=== PATIENT | female | born 1995 | race Caucasian/White ===

== ENCOUNTER 2018-05-27 11:44 | Emergency (ER) | payer OTHER ==
--- NOTE | 2018-05-27 12:09 | ER Document Report ---
ED Medical Screen (RME) - General Chief Complaint: Numbness of Face Stated Complaint: FACIAL PAIN, DIZZY, ARM NUMBNESS Time Seen by Provider: 05/27/18 12:07 Mode of Arrival: Ambulatory Information source: Patient TRAVEL OUTSIDE OF THE [place] IN LAST 30 DAYS: No - HPI Patient complains to provider of: numbness in face, L arm Onset: Yesterday - pt with prior TIA with c/o facial numbness and L arm numbness starting yesterday and continuing into today. - Related Data Allergies/Adverse Reactions: No Known Allergies Allergy (Unverified 05/27/18 11:45) Physical Exam - Vital signs Vitals: Temp Pulse Resp BP Pulse Ox 98.5 F 78 18 114/52 L 98 05/27/18 11:50 05/27/18 11:50 05/27/18 11:50 05/27/18 11:50 05/27/18 11:50 Course - Vital Signs Vital signs: Temp Pulse Resp BP Pulse Ox 98.5 F 78 18 114/52 L 98 05/27/18 11:50 05/27/18 11:50 05/27/18 11:50 05/27/18 11:50 05/27/18 11:50
[2018-05-27 12:35] LABS: ABSOLUTE BASOPHILS # (AUTO) 0.1 10^3/uL (0.0-0.2); ABSOLUTE EOSINOPHILS # (AUTO) 0.1 10^3/uL (0.0-0.6); ABSOLUTE LYMPHOCYTES (AUTO) 2.7 10^3/uL (0.5-4.7); ABSOLUTE MONOCYTES (AUTO) 0.5 10^3/uL (0.1-1.4); ABSOLUTE NEUT (AUTO) 6.6 10^3/uL (1.7-8.2); APPEARANCE,URINE CLEAR; BASOPHILS % (AUTO) 0.6 % (0-2); BILIRUBIN,URINE NEGATIVE (NEGATIVE); COLOR,URINE STRAW; GLUCOSE, URINE NEGATIVE (NEGATIVE); HEMATOCRIT 41.2 % (36.0-47.0); HEMOGLOBIN 13.8 g/dL (12.0-15.5); KETONES,URINE NEGATIVE (NEGATIVE); LEUKOCYTE ESTERASE,URINE NEGATIVE (NEGATIVE); LYMPHOCYTES % (AUTO) 27.3 % (13-45); MEAN CORPUSCULAR HGB CONC 33.4 g/dL (32.0-36.0); MEAN CORPUSCULAR VOLUME 81 fl (80-97); MONOCYTES % (AUTO) 5.2 % (3-13); NITRITE,URINE NEGATIVE (NEGATIVE); PLATELET COUNT 248 10^3/uL (150-450); PROTEIN,URINE NEGATIVE (NEGATIVE); RED CELL DISTRIBUTION WIDTH 13.4 % (11.5-14.0); SEGMENTED NEUTROPHILS % (AUTO) 65.9 % (42-78); TOTAL CELLS COUNTED % (AUTO) 100 %; URINE SPECIFIC GRAVITY 1.003; UROBILINOGEN,URINE NEGATIVE mg/dL (<2.0)
--- NOTE | 2018-05-27 12:36 | RADIOLOGY REPORT (SQ) ---
EXAM DESCRIPTION: CT HEAD WITHOUT COMPLETED DATE/TIME: 05/27/2018 12:25 pm REASON FOR STUDY: numbness COMPARISON: None. TECHNIQUE: Axial images acquired through the brain without intravenous contrast. Images reviewed wi th bone, brain and subdural windows. Additional sagittal and coronal reconstructions were generated. Images stored on PACS. All CT scanners at this facility use dose modulation, iterative reconstruction, and/or weight based d osing when appropriate to reduce radiation dose to as low as reasonably achievable (ALARA). [facility]: Dose Right [facility]: CareDose [facility]: Dose Right [facility]: Teradose 4D [facility]: [place] RADIATION DOSE: CT Rad equipment meets quality standard of care and radiation dose reduction techniq ues were employed. CTDIvol: 53.2 mGy. DLP: 1017 mGy-cm. mGy. LIMITATIONS: None. FINDINGS: VENTRICLES: Normal size and contour. CEREBRUM: No masses. No hemorrhage. No midline shift. No evidence for acute infarction. Normal gra y/white matter differentiation. No areas of low density in the white matter. CEREBELLUM: No masses. No hemorrhage. No alteration of density. No evidence for acute infarction. EXTRAAXIAL SPACES: No fluid collections. No masses. ORBITS AND GLOBE: No intra- or extraconal masses. Normal contour of globe without masses. CALVARIUM: No fracture. PARANASAL SINUSES: No fluid or mucosal thickening. SOFT TISSUES: No mass or hematoma. OTHER: No other significant finding. IMPRESSION: NORMAL BRAIN CT WITHOUT CONTRAST. EVIDENCE OF ACUTE STROKE: NO. COMMENT: Quality ID # [id number]: Final reports with documentation of one or more dose reduction techniques (e.g., Automated exposure control, adjustment of the mA and/or kV according to patient size, use of iterative reconstruction technique) TECHNICAL DOCUMENTATION: JOB ID: [id number] [employer]- All Rights Reserved Reading location - IP/workstation name: [email or web address]
--- NOTE | 2018-05-27 12:51 | ER Document Report ---
ED General - General Chief Complaint: Numbness of Face Stated Complaint: FACIAL PAIN, DIZZY, ARM NUMBNESS Time Seen by Provider: 05/27/18 12:07 Mode of Arrival: Ambulatory TRAVEL OUTSIDE OF THE [place] IN LAST 30 DAYS: No - HPI Notes: Patient is a 22-year-old female with a history of migraines and reported history of a previous TIA a year ago when she was in [place] presents to the ED complaining of a dull ache behind her left eye, left head "fogginess" and tingling to the left upper extremity extending into the hand 3 days. Patient states her symptoms have been constant, but considered "mild" for her. 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 Patient states that she was stationed in [place] with the [employer] and went to an outside emergency department where she was admitted for 10 days. 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 Patient states that they gave her medicine to help break down the plaque was discharged thereafter. Patient has not been evaluated since her return and recently moved to this area. She states that her symptoms when she was in [place] was "similar, but 10x worse." She denies any prolonged immobilization, recent surgery/trauma, smoking, cancer history, previous DVT/PE. Denies any fever, neck pain, changes in vision/speech/mentation/hearing, URI, sore throat, chest pain, palpitations, syncope, cough, shortness of breath, wheeze, dyspnea, abdominal pain, nausea/vomiting/diarrhea, urinary retention, dysuria, hematuria , loss of control of bowel or bladder, saddle anesthesia, muscle paralysis/ weakness, or rash. - Related Data Allergies/Adverse Reactions: No Known Allergies Allergy (Verified 05/27/18 12:11) Past Medical History - General Information source: Patient - Social History Smoking Status: Never Smoker Frequency of alcohol use: None Drug Abuse: None Family History: Reviewed & Not Pertinent Patient has suicidal ideation: No Patient has homicidal ideation: No Renal/ Medical History: Denies: Hx Peritoneal Dialysis Past Surgical History: Reports: Hx Orthopedic Surgery - da knee Review of Systems - Review of Systems -: Yes All other systems reviewed and negative Physical Exam - Vital signs Vitals: Temp Pulse Resp BP Pulse Ox 98.5 F 78 18 114/52 L 98 05/27/18 11:50 05/27/18 11:50 05/27/18 11:50 05/27/18 11:50 05/27/18 11:50 - Notes Notes: PHYSICAL EXAMINATION: GENERAL: Well-appearing, well-nourished and in no acute distress. A&Ox4. Answers questions appropriately. HEAD: Atraumatic, normocephalic. Non-tender. EYES: Pupils equal round and reactive to light, extraocular movements intact, sclera anicteric, conjunctiva are normal. No nystagmus. vis diaz intact. ENT: EAC clear b/l. TM's intact b/l without erythema, fluid, or perforation. Nares patent and without discharge. oropharynx clear without exudates. No tonsilar hypertrophy or erythema. Moist mucous membranes. No sinus tenderness. NECK: Normal range of motion, supple without lymphadenopathy. No rigidity/ meningismus. No midline tenderness. No bruits. LUNGS: Breath sounds clear to auscultation bilaterally and equal. No wheezes rales or rhonchi. HEART: Regular rate and rhythm without murmurs, rubs, gallops. ABDOMEN: Soft, nontender, nondistended abdomen. No guarding, no rebound. Normal bowel sounds present. No CVA tenderness bilaterally. Musculoskeletal: Ext b/l: FROM to passive/active. Strength 5+/5. No deficits noted. No bony tenderness of extremities. + mild tinel left wrist, made her hand feel "warm." Extremities: No cyanosis, clubbing, or edema b/l. Peripheral pulses 2+. Capillary refill less than 2 seconds. NEUROLOGICAL: NIH 0. GCS 15. Cranial nerves grossly intact. Normal speech, normal gait. Normal sensory, motor exams. Reflexes 2+ b/l. JOSE RAUL's negative. Pronator drift negative. Heel/graves, finger/nose wnl. Rhomberg neg. PSYCH: Normal mood, normal affect. SKIN: Warm, Dry, normal turgor, no rashes or lesions noted. Course - Re-evaluation Re-evalutation: 05/27/18 14:23 Patient is an afebrile, well-hydrated, 22-year-old female who presents to the ED with left-sided headache and tingling left upper extremity, unspecified. Vitals are acceptable without any significant tachycardia, tachypnea, or hypoxia. PE is otherwise unremarkable for any focal neurological deficits. CBC , CMP, TSH, urinalysis were unremarkable for acute pathology. Urine drug screen did show positive for barbiturates, which I suspect is her migraine medication. CT scan of the head was unremarkable for any acute pathology. NIH 0, GCS 15, cranial nerves grossly intact. I did review this case with Dr. Solano who is in agreement with dispo/plan. No other labs or imaging warranted at this time based on H&P. Her symptoms have been ongoing constantly for 3 days and exam is unremarkable. Based on her current presentation and symptomatology, I have a low suspicion for any acute glaucoma, temporal arteritis, meningitis, intracranial hemorrhage, ischemic stroke, severe dehydration, or fracture at this time. Patient is aware that this condition can change from initial presentation and that she needs to monitor symptoms closely for any acute changes. I will send her home with a prescription for naproxen. Conservative measures for symptoms. Recheck with your PCM in 3-5 days. Schedule an appointment with neurology for further evaluation and management. Return to the ED with any worsening/concerning symptoms otherwise as reviewed in discharge. Patient is in agreement. - Vital Signs Vital signs: Temp Pulse Resp BP Pulse Ox 98.5 F 78 18 114/52 L 98 05/27/18 11:50 05/27/18 12:00 05/27/18 12:00 05/27/18 12:00 05/27/18 12:00 - Laboratory Result Diagrams: 05/27/18 12:11 05/27/18 12:11 Laboratory results interpreted by me: 05/27/18 12:11 Urine Blood SMALL H Discharge - Discharge Clinical Impression: Tingling of left upper extremity Headache Qualifiers: Headache type: unspecified Headache chronicity pattern: acute headache Intractability: not intractable Qualified Code(s): R51 - Headache Condition: Stable Disposition: HOME, SELF-CARE Additional Instructions: Rest, Ice/cool compress Tylenol/ibuprofen as needed Light stretches daily Strength exercises as able Moist heat and massage may help F/u with your PCP in 3-5 days for a recheck Schedule an appointment with neurology for further evaluation and management Return to the ED with any worsening symptoms and/or development of fever, headache, changes in behavior/mentation/vision/speech, chest pain, palpitations , syncope, shortness of breath, trouble breathing, abdominal pain, n/v/d, blood in stool/urine, loss of control of bowel/bladder, urinary retention, muscle weakness/paralysis, saddle anesthesia, numbness/tingling, or other worsening symptoms that are concerning to you. Prescriptions: Naproxen 500 mg PO BID PRN #30 tablet PRN Reason: Referrals: JUDITH ROJO MD [NO LOCAL MD] - Follow up in 3-5 days
[2018-05-27 12:53] LABS: URINE AMPHETAMINES SCREEN NEGATIVE; URINE BARBITURATES SCREEN UNCONFIRMED POSITIVE; URINE BENZODIAZEPINES SCREEN NEGATIVE; URINE COCAINE SCREEN NEGATIVE; URINE MARIJUANA (THC) SCREEN NEGATIVE; URINE METHADONE SCREEN NEGATIVE; URINE PHENCYCLIDINE SCREEN NEGATIVE
[2018-05-27 12:59] LABS: ALANINE AMINOTRANSFERASE 24 U/L (9-52); ALBUMIN 4.6 g/dL (3.5-5.0); ALKALINE PHOSPHATASE 50 U/L (38-126); ANION GAP 10 (5-19); ASPARTATE AMINO TRANSFERASE 25 U/L (14-36); BILIRUBIN,DIRECT 0.2 mg/dL (0.0-0.4); BILIRUBIN,TOTAL 0.6 mg/dL (0.2-1.3); BLOOD UREA NITROGEN 16 mg/dL (7-20); CALCIUM 9.7 mg/dL (8.4-10.2); CARBON DIOXIDE 28 mmol/L (22-30); CHLORIDE 105 mmol/L (98-107); GLUCOSE 90 mg/dL (75-110); POTASSIUM 4.4 mmol/L (3.6-5.0); SODIUM 143.1 mmol/L (137-145); TOTAL PROTEIN 7.6 g/dL (6.3-8.2)
[2018-05-27] MEDS ORDERED: KETOROLAC TROMETHAMINE INJ/PF 30 MG/1 ML SDV IM ONE (13:37)
[2018-05-27 14:49] VITALS: BP 107/55
== END 2018-05-27 14:49 | disposition home or self-care (01) ==
LOC: ER 11:44
DX: R20.2 Paresthesia of skin (principal); R51 Headache; Z86.69 Personal history of other diseases of the nervous system and sense organs; Z86.73 Personal history of transient ischemic attack (TIA), and cerebral infarction without residual deficits
CPT/HCPCS: 36415; 70450; 80053; 80307; 81001; 81025; 84443; 85025; 99284

== ENCOUNTER → 2018-06-17 | Outpatient (CLI) | payer OTHER ==
--- NOTE | 2018-06-17 14:03 | RADIOLOGY REPORT (SQ) ---
EXAM DESCRIPTION: MRI HEAD WITHOUT COMPLETED DATE/TIME: 06/17/2018 1:20 pm REASON FOR STUDY: HEADACHE/DIZZINESS AND GIDDINESS/PARASTHEIA OF SKIN R51 HEADACHE R41.2 RETROGRAD E AMNESIA R20.2 PARESTHESIA OF SKIN COMPARISON: None. TECHNIQUE: Multiplanar imaging includes non-contrasted T1, T2, FLAIR, and diffusion with ADC map seq uences. Images stored on PACS. LIMITATIONS: None. FINDINGS: ANATOMY: No anomalies. Normal vascular flow voids. Pituitary fossa normal. CSF SPACES: Normal in size and contour. No hemorrhage. CEREBRUM: Sulci and gyri normal in size and contour. Normal white matter signal on FLAIR imaging. No evidence of hemorrhage, mass, or extraaxial fluid collection. POSTERIOR FOSSA: No signal alteration. No hemorrhage. No edema, masses or mass effect. Internal noemy tory canals, cerebello-pontine angles, mastoids normal. DIFFUSION IMAGING: Negative for acute or sub-acute infarction. ORBITS: No masses. Globes normal. PARANASAL SINUSES: No fluid levels. Mucosa normal. OTHER: No other significant finding. IMPRESSION: NORMAL MRI OF THE BRAIN WITHOUT INTRAVENOUS GADOLINIUM CONTRAST. EVIDENCE OF ACUTE STROKE: NO. TECHNICAL DOCUMENTATION: JOB ID: [id number] [employer]- All Rights Reserved Reading location - IP/workstation name: [email or web address]
--- NOTE | 2018-06-17 16:11 | RADIOLOGY REPORT (SQ) ---
EXAM DESCRIPTION: CAROTID DOPPLER COMPLETED DATE/TIME: 06/17/2018 4:02 pm REASON FOR STUDY: HEADACHE DIZZINESS AND GIDDINESS R51 HEADACHE R41.2 RETROGRADE AMNESIA R20.2 PA RESTHESIA OF SKIN COMPARISON: None. TECHNIQUE: Grayscale ultrasound, Doppler velocity and spectra, and color Doppler images acquired of the extra-cranial carotid and vertebral arteries. Images stored on PACS. LIMITATIONS: None. FINDINGS: RIGHT CAROTID CCA Velocities: Within normal limits. ICA Velocities Peak systolic 0.84 m/s. End diastolic 0.25 m/s. Proximal ICA/CCA peak systolic ratio 0.7. Spectra normal. No significant plaque. LEFT CAROTID CCA Velocities: Within normal limits. ICA Velocities Peak systolic 0.99 m/s. End diastolic 0.33 m/s. Proximal ICA/CCA peak systolic ratio 0.8. Spectra normal. No significant plaque. VERTEBRAL ARTERIES: Antegrade flow. Normal waveforms. SUBCLAVIAN ARTERIES: Not imaged. OTHER: No other significant finding. IMPRESSION: NO HEMODYNAMICALLY SIGNIFICANT STENOSIS. COMMENT: Quality ID #[id number]: Velocity criteria are extrapolated from the diameter data as defined by t he Society of Radiologists in Ultrasound Consensus Conference. Radiology 2003: 229; 340-346. TECHNICAL DOCUMENTATION: JOB ID: [id number] [employer]- All Rights Reserved Reading location - IP/workstation name: [email or web address]
== END ==
LOC: RAD 12:42
PROVIDERS: ATTEND Obstetrics & Gynecology
DX: R51 Headache (principal); R41.2 Retrograde amnesia; R20.2 Paresthesia of skin
CPT/HCPCS: 70551; 93880

== ENCOUNTER → 2019-08-24 | Outpatient (CLI) | payer OTHER ==
[2019-08-24 16:20] LABS: HEMATOCRIT 39.3 % (36.0-47.0); MEAN CORPUSCULAR VOLUME 82 fl (80-97); PLATELET COUNT 225 10^3/uL (150-450); RED BLOOD COUNT 4.81 10^6/uL (3.72-5.28); RED CELL DISTRIBUTION WIDTH 12.9 % (11.5-14.0); WHITE BLOOD COUNT 11.8 10^3/uL (4.0-10.5)
[2019-08-24 16:37] LABS: ALBUMIN 4.3 g/dL (3.5-5.0); ALKALINE PHOSPHATASE 48 U/L (38-126); ANION GAP 10 (5-19); ASPARTATE AMINO TRANSFERASE 19 U/L (14-36); BILIRUBIN,DIRECT 0.1 mg/dL (0.0-0.4); BILIRUBIN,TOTAL 0.4 mg/dL (0.2-1.3); BLOOD UREA NITROGEN 18 mg/dL (7-20); CALCIUM 9.3 mg/dL (8.4-10.2); CARBON DIOXIDE 27 mmol/L (22-30); CHLORIDE 105 mmol/L (98-107); POTASSIUM 3.9 mmol/L (3.6-5.0); TOTAL PROTEIN 7.1 g/dL (6.3-8.2)
[2019-08-24 16:40] LABS: APPEARANCE,URINE CLEAR; BILIRUBIN,URINE NEGATIVE (NEGATIVE); COLOR,URINE YELLOW; GLUCOSE, URINE NEGATIVE (NEGATIVE); KETONES,URINE NEGATIVE (NEGATIVE); LEUKOCYTE ESTERASE,URINE SMALL (NEGATIVE); NITRITE,URINE NEGATIVE (NEGATIVE); PROTEIN,URINE NEGATIVE (NEGATIVE); URINE SPECIFIC GRAVITY 1.016; UROBILINOGEN,URINE NEGATIVE mg/dL (<2.0)
[2019-08-24 16:47] LABS: INTERNATIONAL RATION (INR) 1.07; PARTIAL THROMBOPLASTIN TIME 34.6 SEC (23.5-35.8)
[2019-08-24 16:48] LABS: GLUCOSE 61 mg/dL (75-110)
== END ==
LOC: LAB 15:53
PROVIDERS: ATTEND Obstetrics & Gynecology
DX: Z13.9 Encounter for screening, unspecified (principal)
CPT/HCPCS: 36415; 80053; 81001; 83036; 84703; 85027; 85610; 85730; 86304; 86900; 86901

== ENCOUNTER → 2019-10-03 | Outpatient (CLI) | payer OTHER ==
[2019-10-04 09:59] LABS: CANCER ANTIGEN (CA) 125 15.8 U/mL (0.0-38.1)
[2019-10-06 09:56] LABS: MULLERIAN HORMONE (AMH) AB 6.23 ng/mL (.)
== END ==
LOC: LAB 13:07
PROVIDERS: ATTEND Obstetrics & Gynecology
DX: Z00.00 Encounter for general adult medical examination without abnormal findings (principal)
CPT/HCPCS: 36415; 82626; 82670; 83001; 83516; 84144; 84403; 84443; 86304

== ENCOUNTER 2020-01-17 11:58 | Emergency (ER) | payer OTHER ==
[2020-01-17] MEDS ORDERED: ALBUTEROL SULFATE HFA (90 MCG/PUFF) 8 GM MDI IH ONE (12:49)
[2020-01-17 12:50] LABS: APPEARANCE,URINE CLEAR; BILIRUBIN,URINE NEGATIVE (NEGATIVE); COLOR,URINE YELLOW; GLUCOSE, URINE NEGATIVE (NEGATIVE); KETONES,URINE NEGATIVE (NEGATIVE); LEUKOCYTE ESTERASE,URINE NEGATIVE (NEGATIVE); NITRITE,URINE NEGATIVE (NEGATIVE); PROTEIN,URINE NEGATIVE (NEGATIVE); URINE SPECIFIC GRAVITY 1.006; UROBILINOGEN,URINE NEGATIVE mg/dL (<2.0)
--- NOTE | 2020-01-17 12:50 | ER Document Report ---
ED General - General Chief Complaint: Breathing Difficulty Stated Complaint: TROUBLE BREATHING Primary Care Provider: FERNIE PÉREZ MD [Primary Care Provider] - Follow up as needed Notes: Patient is a 24-year-old white female with no significant past medical history presents to the emergency department with a chief complaint of shortness of b reath and fever. The patient reports about a week ago states her returned home from deployment to [facility]. She states he was around approximately 39 or 49 known cases of COVID 19. She states he has been in isolation since his returned for quarantine however she has had close contact with him during this time. She states she lives with him and their young son. She reports last week her son was sick with flulike symptoms. Was seen outpatient diagnosed with influenza A. She states he was given no specific treatment and his symptoms resolved in approximately 2 days. She reports that he had fever, cough and sore throat. The patient reports about a week ago today she began feeling unwell. She states she started with fevers averaging 102 Fahrenheit and generalized malaise and fatigue. She states her symptoms have waxed and waned over the past week and today she started having shortness of breath and bilateral chest wall discomfort. States the pain is worse with deep inspiration. She denies a history of cough. Denies any hemoptysis or lower extremity pain or swelling. She denies any recent travel of her own. She was never tested for influenza last week when her son was sick. She was seen outpatient for swab testing prior to her visit here. She had a negative strep and flu and is pending COVID-19 test. She states that she called the chain of command to advise of her symptoms given her exposure to her , they advised they do not handle civilian care and referred her to a one 800- number. She states she called this one 800-number and was told to go to a local outpatient lab for coronavirus testing. She was sent here from the lab given her complaint of shortness of breath for further evaluation and management. TRAVEL OUTSIDE OF THE [place] IN LAST 30 DAYS: No - Related Data Allergies/Adverse Reactions: No Known Allergies Allergy (Verified 05/27/18 12:11) Past Medical History - Social History Smoking Status: Unknown if Ever Smoked Family History: Reviewed & Not Pertinent Renal/ Medical History: Denies: Hx Peritoneal Dialysis Past Surgical History: Reports: Hx Orthopedic Surgery - da knee Review of Systems - Review of Systems Constitutional: Fever, Malaise Respiratory: Hurts to breathe, Short of breath -: Yes All other systems reviewed and negative Physical Exam - Vital signs Vitals: Resp Pulse Ox 8 L 100 01/17/20 12:29 01/17/20 12:29 - General General appearance: Appears well, Alert In distress: None - HEENT Head: Normocephalic, Atraumatic Eyes: Normal Conjunctiva: Normal Extraocular movements intact: Yes Eyelashes: Normal Pupils: PERRL Ears: Normal External canal: Normal Tympanic membrane: Normal Sinus: Normal Nasal: Normal Mouth/Lips: Normal Mucous membranes: Normal Pharynx: Normal Neck: Normal - Respiratory Respiratory status: No respiratory distress Chest status: Tender - Bilateral lower chest wall in the anterior to mid axillary lines. No deformity step-off or crepitus. Breath sounds: Normal Chest palpation: Tender. No: Flail segment, Subcutaneous emphysema, Ecchymosis, Wounds - Cardiovascular Rhythm: Regular Heart sounds: Normal auscultation Murmur: No - Extremities General upper extremity: Normal inspection, Nontender, Normal color, Normal ROM, Normal temperature General lower extremity: Normal inspection, Nontender, Normal color, Normal ROM, Normal temperature, Normal weight bearing. No: Alonzo's sign - Neurological Neuro grossly intact: Yes Cognition: Normal Orientation: AAOx4 [place] Coma Scale Eye Opening: Spontaneous [place] Coma Scale Verbal: Oriented Ivan Coma Scale Motor: Obeys Commands Ivan Coma Scale Total: 15 Speech: Normal Motor strength normal: LUE, RUE, LLE, RLE Sensory: Normal - Psychological Associated symptoms: Normal affect, Normal mood - Skin Skin Temperature: Warm Skin Moisture: Dry Skin Color: Normal Course - Re-evaluation Re-evalutation: 01/17/20 13:49 Normal white cell count. X-ray negative for acute process per radiologist. Negative flu and strep. Pending COVID-19 results, the patient will be considered a patient under investigation. She will self isolate at home. We discussed these measures at length. She has had contact with her [id number], and son. She lives with her and son and they will also self quarantine together as her is already under quarantine. She will alert her [id number] to quarantine as well. Counseled her at length regarding supportive care measures and the importance of follow-up. Advised that she return here or any ER immediately with any new, persistent or worsening symptoms. She verbalized understood and agreed. - Vital Signs Vital signs: Temp Pulse Resp BP Pulse Ox 98.5 F 12 103/62 100 01/17/20 15:08 01/17/20 14:01 01/17/20 14:01 01/17/20 14:01 - Laboratory Result Diagrams: 01/17/20 12:44 01/17/20 12:44 Laboratory results interpreted by me: 01/17/20 01/17/20 12:44 12:44 Lymph % (Auto) 11.7 L Glucose 71 L Discharge - Discharge Clinical Impression: PUI for COVID-19, Shortness of breath Fever Qualifiers: Fever type: unspecified Qualified Code(s): R50.9 - Fever, unspecified Condition: Stable Disposition: HOME, SELF-CARE Instructions: Fever ([facility]) Additional Instructions: Your strep test and flu swab were negative. Your coronavirus testing is pending. Please self isolate in your home as discussed. Please warn others that you have had contact with to self isolate as well and seek medical care should they become ill. Please return here or any ER immediately with any new, persistent or worsening symptoms. Referrals: FERNIE PÉREZ MD [Primary Care Provider] - Follow up as needed
[2020-01-17 12:54] LABS: ABSOLUTE EOSINOPHILS # (AUTO) 0.1 10^3/uL (0.0-0.6); ABSOLUTE LYMPHOCYTES (AUTO) 0.8 10^3/uL (0.5-4.7); ABSOLUTE MONOCYTES (AUTO) 0.7 10^3/uL (0.1-1.4); ABSOLUTE NEUT (AUTO) 5.5 10^3/uL (1.7-8.2); BASOPHILS % (AUTO) 0.5 % (0-2); HEMATOCRIT 40.4 % (36.0-47.0); HEMOGLOBIN 14.1 g/dL (12.0-15.5); LYMPHOCYTES % (AUTO) 11.7 % (13-45); MEAN CORPUSCULAR HEMOGLOBIN 28.2 pg (27.0-33.4); MEAN CORPUSCULAR HGB CONC 34.9 g/dL (32.0-36.0); MEAN CORPUSCULAR VOLUME 81 fl (80-97); MONOCYTES % (AUTO) 9.3 % (3-13); PLATELET COUNT 193 10^3/uL (150-450); RED BLOOD COUNT 4.99 10^6/uL (3.72-5.28); RED CELL DISTRIBUTION WIDTH 13.1 % (11.5-14.0); SEGMENTED NEUTROPHILS % (AUTO) 77.5 % (42-78); TOTAL CELLS COUNTED % (AUTO) 100 %; WHITE BLOOD COUNT 7.1 10^3/uL (4.0-10.5)
[2020-01-17 13:10] LABS: ALBUMIN 4.2 g/dL (3.5-5.0); ALKALINE PHOSPHATASE 59 U/L (38-126); ANION GAP 8 (5-19); ASPARTATE AMINO TRANSFERASE 20 U/L (14-36); BILIRUBIN,TOTAL 0.9 mg/dL (0.2-1.3); BLOOD UREA NITROGEN 13 mg/dL (7-20); CALCIUM 9.1 mg/dL (8.4-10.2); CARBON DIOXIDE 28 mmol/L (22-30); CHLORIDE 102 mmol/L (98-107); GLUCOSE 71 mg/dL (75-110); POTASSIUM 4.1 mmol/L (3.6-5.0); TOTAL PROTEIN 7.1 g/dL (6.3-8.2)
--- NOTE | 2020-01-17 13:38 | RADIOLOGY REPORT (SQ) ---
EXAM DESCRIPTION: CHEST SINGLE VIEW COMPLETED DATE/TIME: 01/17/2020 1:24 pm REASON FOR STUDY: sob COMPARISON: None. EXAM PARAMETERS: NUMBER OF VIEWS: One view. TECHNIQUE: Single frontal radiographic view of the chest acquired. RADIATION DOSE: NA LIMITATIONS: None. FINDINGS: LUNGS AND PLEURA: No opacities, masses or pneumothorax. No pleural effusion. MEDIASTINUM AND HILAR STRUCTURES: No masses. Contour normal. HEART AND VASCULAR STRUCTURES: Heart normal in size. Normal vasculature. BONES: No acute findings. HARDWARE: None in the chest. OTHER: No other significant finding. IMPRESSION: NO ACUTE RADIOGRAPHIC FINDING IN THE CHEST. TECHNICAL DOCUMENTATION: JOB ID: [id number] [email or web address]- All Rights Reserved Reading location - IP/workstation name: [email or web address]
[2020-01-17 15:08] VITALS: BP 103/62
== END 2020-01-17 14:50 | disposition home or self-care (01) ==
LOC: ER 11:58
DX: Z20.828 Contact with and (suspected) exposure to other viral communicable diseases (principal); R06.02 Shortness of breath; R50.9 Fever, unspecified; R53.81 Other malaise; R53.83 Other fatigue; R07.9 Chest pain, unspecified
CPT/HCPCS: 99285; 36415; 85025; 80053; 81001; 71045; J3490

== ENCOUNTER → 2020-01-17 | Outpatient (CLI) | payer OTHER ==
[2020-01-17 12:17] LABS: A TYPE INFLUENZA AG NEGATIVE (NEGATIVE); B INFLUENZA AG NEGATIVE (NEGATIVE)
== END ==
LOC: RDC 11:07
PROVIDERS: ATTEND Registered Nurse
DX: Z20.828 Contact with and (suspected) exposure to other viral communicable diseases (principal)
CPT/HCPCS: 87070; 87635; 87804; 87880

== ENCOUNTER 2020-03-20 12:13 | Outpatient (CLI) | payer OTHER ==
[2020-03-20 12:41] VITALS: BP 97/53
[2020-03-20] MEDS ORDERED: DEXTROSE 5%-LACTATED RINGERS 1,000 ML IV PRN (12:44)
== END 2020-03-20 13:50 | disposition home or self-care (01) ==
LOC: II 12:13 → 5TH 13:47 → II 13:50
PROVIDERS: ATTEND Obstetrics & Gynecology
DX: O21.1 Hyperemesis gravidarum with metabolic disturbance (principal)
CPT/HCPCS: 96360

== ENCOUNTER 2020-03-23 09:57 | Outpatient (CLI) | payer OTHER ==
[2020-03-23 10:16] VITALS: BP 100/49
[2020-03-23] MEDS ORDERED: DEXTROSE 5%-LACTATED RINGERS 1,000 ML IV ONE (11:00)
== END 2020-03-23 11:15 | disposition home or self-care (01) ==
LOC: II 09:57 → 5TH 10:16 → II 11:15
PROVIDERS: ATTEND Obstetrics & Gynecology
DX: O21.1 Hyperemesis gravidarum with metabolic disturbance (principal)
CPT/HCPCS: 96360

== ENCOUNTER 2020-03-27 10:55 | Outpatient (CLI) | payer OTHER ==
[2020-03-27] MEDS ORDERED: DEXTROSE 5%-LACTATED RINGERS 1,000 ML IV PRN (11:03)
[2020-03-27 12:20] VITALS: BP 105/58
== END 2020-03-27 12:30 | disposition home or self-care (01) ==
LOC: II 10:55 → 5TH 10:58 → II 12:30
PROVIDERS: ATTEND Obstetrics & Gynecology
DX: O21.1 Hyperemesis gravidarum with metabolic disturbance (principal)
CPT/HCPCS: 96360

== ENCOUNTER 2020-03-30 08:55 | Outpatient (CLI) | payer OTHER ==
[~2020-03-30 08:55] MED LIST: DEXTROSE 5%-LACTATED RINGERS 1,000 ML IV PRN
[2020-03-30 10:08] VITALS: BP 109/54
== END 2020-03-30 10:20 | disposition home or self-care (01) ==
LOC: II 08:55 → 5TH 09:12 → II 10:20
PROVIDERS: ATTEND Obstetrics & Gynecology
DX: O21.1 Hyperemesis gravidarum with metabolic disturbance (principal)
CPT/HCPCS: 96360

== ENCOUNTER 2020-04-03 11:07 | Outpatient (CLI) | payer OTHER ==
[2020-04-03] MEDS ORDERED: DEXTROSE 5%-LACTATED RINGERS 1,000 ML IV PRN (11:39)
[2020-04-03 12:03] VITALS: BP 123/54
== END 2020-04-03 12:35 | disposition home or self-care (01) ==
LOC: II 11:07 → 5TH 11:26 → II 12:35
PROVIDERS: ATTEND Obstetrics & Gynecology
DX: O21.1 Hyperemesis gravidarum with metabolic disturbance (principal)
CPT/HCPCS: 96360

== ENCOUNTER 2020-04-06 08:57 | Outpatient (CLI) | payer OTHER ==
[2020-04-06] MEDS ORDERED: DEXTROSE 5%-LACTATED RINGERS 1,000 ML IV PRN (09:06)
[2020-04-06 09:16] VITALS: BP 102/59
== END 2020-04-06 10:30 | disposition home or self-care (01) ==
LOC: II 08:57 → 5TH 09:00 → II 10:30
PROVIDERS: ATTEND Obstetrics & Gynecology
DX: O21.1 Hyperemesis gravidarum with metabolic disturbance (principal)
CPT/HCPCS: 96360

== ENCOUNTER 2020-04-13 09:10 | Outpatient (CLI) | payer OTHER ==
[2020-04-13] MEDS ORDERED: DEXTROSE 5%-LACTATED RINGERS 1,000 ML IV PRN (09:29)
[2020-04-13 09:57] VITALS: BP 99/48
== END 2020-04-13 10:41 | disposition home or self-care (01) ==
LOC: II 09:10 → 5TH 09:10 → II 10:41
PROVIDERS: ATTEND Obstetrics & Gynecology
DX: O21.1 Hyperemesis gravidarum with metabolic disturbance (principal)
CPT/HCPCS: 96360

== ENCOUNTER 2020-04-17 10:10 | Outpatient (CLI) | payer OTHER ==
[2020-04-17 10:32] VITALS: BP 99/57
== END 2020-04-17 11:54 | disposition home or self-care (01) ==
LOC: II 10:10 → 5TH 10:17 → II 11:54
PROVIDERS: ATTEND Obstetrics & Gynecology
DX: O21.1 Hyperemesis gravidarum with metabolic disturbance (principal)
CPT/HCPCS: 96360; 96361

== ENCOUNTER 2020-04-18 08:52 | Outpatient (CLI) | payer OTHER ==
[2020-04-18 09:03] VITALS: BP 100/50
== END 2020-04-18 10:09 | disposition home or self-care (01) ==
LOC: 5TH 08:52 → II 08:52
PROVIDERS: ATTEND Obstetrics & Gynecology
DX: O21.1 Hyperemesis gravidarum with metabolic disturbance (principal)
CPT/HCPCS: 96360

== ENCOUNTER 2020-04-20 09:13 | Outpatient (CLI) | payer OTHER ==
[2020-04-20 09:51] VITALS: BP 104/54
== END 2020-04-20 11:00 | disposition home or self-care (01) ==
LOC: II 09:13 → 5TH 09:13 → II 11:00
PROVIDERS: ATTEND Obstetrics & Gynecology
DX: O21.1 Hyperemesis gravidarum with metabolic disturbance (principal)
CPT/HCPCS: 96360

== ENCOUNTER 2020-04-25 08:25 | Outpatient (CLI) | payer OTHER ==
[2020-04-25 08:45] VITALS: BP 106/50
== END 2020-04-25 09:47 | disposition home or self-care (01) ==
LOC: II 08:25 → 5TH 08:29 → II 09:47
PROVIDERS: ATTEND Obstetrics & Gynecology
DX: O21.1 Hyperemesis gravidarum with metabolic disturbance (principal)
CPT/HCPCS: 96360

== ENCOUNTER 2020-04-26 08:48 | Outpatient (CLI) | payer OTHER ==
[2020-04-26 09:10] VITALS: BP 105/50
== END 2020-04-26 10:15 | disposition home or self-care (01) ==
LOC: II 08:48 → 5TH 09:07 → II 10:15
PROVIDERS: ATTEND Obstetrics & Gynecology
DX: O21.1 Hyperemesis gravidarum with metabolic disturbance (principal)
CPT/HCPCS: 96360

== ENCOUNTER 2020-04-27 08:55 | Outpatient (CLI) | payer OTHER ==
[2020-04-27 09:07] VITALS: BP 101/58
== END 2020-04-27 10:12 | disposition home or self-care (01) ==
LOC: II 08:55 → 5TH 09:01 → II 10:12
PROVIDERS: ATTEND Obstetrics & Gynecology
DX: O21.1 Hyperemesis gravidarum with metabolic disturbance (principal)
CPT/HCPCS: 96360

== ENCOUNTER 2020-05-01 08:12 | Outpatient (CLI) | payer OTHER ==
[2020-05-01] MEDS ORDERED: DEXTROSE 5%-LACTATED RINGERS 1,000 ML IV PRN (08:22)
[2020-05-01 08:27] VITALS: BP 91/54
== END 2020-05-01 09:45 | disposition home or self-care (01) ==
LOC: II 08:12 → 5TH 08:15 → II 09:45
PROVIDERS: ATTEND Nurse Practitioner Primary Care
DX: O21.1 Hyperemesis gravidarum with metabolic disturbance (principal)
CPT/HCPCS: 96360

== ENCOUNTER 2020-05-02 08:05 | Outpatient (CLI) | payer OTHER ==
[2020-05-02 08:24] VITALS: BP 94/50
[2020-05-02] MEDS ORDERED: DEXTROSE 5%-LACTATED RINGERS 1,000 ML IV PRN (08:37)
== END 2020-05-02 09:30 | disposition home or self-care (01) ==
LOC: II 08:05 → 5TH 08:08 → II 09:30
PROVIDERS: ATTEND Nurse Practitioner Primary Care
DX: O21.1 Hyperemesis gravidarum with metabolic disturbance (principal)
CPT/HCPCS: 96360

== ENCOUNTER 2020-05-03 08:58 | Outpatient (CLI) | payer OTHER ==
[2020-05-03] MEDS ORDERED: DEXTROSE 5%-LACTATED RINGERS 1,000 ML IV PRN (09:08)
[2020-05-03 09:11] VITALS: BP 99/54
== END 2020-05-03 10:13 | disposition home or self-care (01) ==
LOC: II 08:58 → 5TH 08:59 → II 10:13
PROVIDERS: ATTEND Nurse Practitioner Primary Care
DX: O21.1 Hyperemesis gravidarum with metabolic disturbance (principal)
CPT/HCPCS: 96360

== ENCOUNTER 2020-05-09 08:05 | Outpatient (CLI) | payer OTHER ==
[2020-05-09 08:15] VITALS: BP 113/61
== END 2020-05-09 09:30 | disposition home or self-care (01) ==
LOC: II 08:05 → 5TH 08:07 → II 09:30
PROVIDERS: ATTEND Obstetrics & Gynecology
DX: O21.1 Hyperemesis gravidarum with metabolic disturbance (principal)
CPT/HCPCS: 96360

== ENCOUNTER 2020-05-10 08:20 | Outpatient (CLI) | payer OTHER ==
[2020-05-10] MEDS ORDERED: DEXTROSE 5%-LACTATED RINGERS 1,000 ML IV PRN (08:29)
[2020-05-10 08:34] VITALS: BP 105/50
== END 2020-05-10 09:41 | disposition home or self-care (01) ==
LOC: II 08:20 → 5TH 08:22 → II 09:41
PROVIDERS: ATTEND Obstetrics & Gynecology
DX: O21.1 Hyperemesis gravidarum with metabolic disturbance (principal)
CPT/HCPCS: 96360

== ENCOUNTER 2020-05-11 08:27 | Outpatient (CLI) | payer OTHER ==
[2020-05-11 10:18] VITALS: BP 110/58
== END 2020-05-11 10:00 | disposition home or self-care (01) ==
LOC: II 08:27 → 5TH 08:29 → II 10:00
PROVIDERS: ATTEND Obstetrics & Gynecology
DX: O21.1 Hyperemesis gravidarum with metabolic disturbance (principal)
CPT/HCPCS: 96360

== ENCOUNTER 2020-05-15 08:59 | Outpatient (CLI) | payer OTHER ==
[2020-05-15 09:08] VITALS: BP 106/53
== END 2020-05-15 10:24 | disposition home or self-care (01) ==
LOC: II 08:59 → 5TH 10:06 → II 10:24
PROVIDERS: ATTEND Obstetrics & Gynecology
DX: O21.1 Hyperemesis gravidarum with metabolic disturbance (principal)
CPT/HCPCS: 96360; J1642

== ENCOUNTER 2020-05-16 09:06 | Outpatient (CLI) | payer OTHER ==
[2020-05-16 09:26] VITALS: BP 100/53
== END 2020-05-16 10:15 | disposition home or self-care (01) ==
LOC: II 09:06 → 5TH 09:07 → II 10:15
PROVIDERS: ATTEND Obstetrics & Gynecology
DX: O21.1 Hyperemesis gravidarum with metabolic disturbance (principal)
CPT/HCPCS: 96360; J1642

== ENCOUNTER 2020-05-18 08:46 | Outpatient (CLI) | payer OTHER ==
[2020-05-18 09:35] VITALS: BP 105/54
== END 2020-05-18 10:12 | disposition home or self-care (01) ==
LOC: II 08:46 → 5TH 08:48 → II 10:12
PROVIDERS: ATTEND Obstetrics & Gynecology
DX: O21.1 Hyperemesis gravidarum with metabolic disturbance (principal)
CPT/HCPCS: 96360; J1642

== ENCOUNTER 2020-05-22 08:07 | Outpatient (CLI) | payer OTHER ==
[2020-05-22 09:11] VITALS: BP 115/58
== END 2020-05-22 09:30 | disposition home or self-care (01) ==
LOC: II 08:07 → 5TH 08:56 → II 09:30
PROVIDERS: ATTEND Obstetrics & Gynecology
DX: O21.1 Hyperemesis gravidarum with metabolic disturbance (principal)
CPT/HCPCS: 96360; J1642

== ENCOUNTER 2020-05-23 07:54 | Outpatient (CLI) | payer OTHER ==
[2020-05-23 08:20] VITALS: BP 107/52
== END 2020-05-23 09:18 | disposition home or self-care (01) ==
LOC: II 07:54 → 5TH 07:54 → II 09:18
PROVIDERS: ATTEND Obstetrics & Gynecology
DX: O21.1 Hyperemesis gravidarum with metabolic disturbance (principal)
CPT/HCPCS: 96360; J1642

== ENCOUNTER 2020-05-31 15:30 | Outpatient (CLI) | payer OTHER ==
[2020-05-31 15:48] VITALS: BP 88/56
[2020-05-31] MEDS ORDERED: DEXTROSE 5%-LACTATED RINGERS 1,000 ML IV ONE (16:15)
== END 2020-05-31 16:32 | disposition home or self-care (01) ==
LOC: II 15:30 → 5TH 15:32 → II 16:32
PROVIDERS: ATTEND Obstetrics & Gynecology
DX: O21.1 Hyperemesis gravidarum with metabolic disturbance (principal)
CPT/HCPCS: 96360; J1642

== ENCOUNTER 2020-06-01 15:18 | Outpatient (CLI) | payer OTHER ==
[2020-06-01] MEDS ORDERED: DEXTROSE 5%-LACTATED RINGERS 1,000 ML IV PRN (15:34)
[2020-06-01 15:46] VITALS: BP 108/62
== END 2020-06-01 16:40 | disposition home or self-care (01) ==
LOC: II 15:18 → 5TH 15:19 → II 16:40
PROVIDERS: ATTEND Obstetrics & Gynecology
DX: O21.1 Hyperemesis gravidarum with metabolic disturbance (principal)
CPT/HCPCS: 96360; J1642

== ENCOUNTER 2020-06-05 14:49 | Outpatient (CLI) | payer OTHER ==
[2020-06-05] MEDS ORDERED: DEXTROSE 5%-LACTATED RINGERS 1,000 ML IV PRN (15:04)
[2020-06-05 15:42] VITALS: BP 114/50
== END 2020-06-05 16:25 | disposition home or self-care (01) ==
LOC: II 14:49 → 5TH 14:57 → II 16:25
PROVIDERS: ATTEND Obstetrics & Gynecology
DX: O21.1 Hyperemesis gravidarum with metabolic disturbance (principal)
CPT/HCPCS: 96360; J1642

== ENCOUNTER 2020-06-07 12:27 | Outpatient (CLI) | payer OTHER ==
[2020-06-07] MEDS ORDERED: DEXTROSE 5%-LACTATED RINGERS 1,000 ML IV PRN (12:29)
[2020-06-07 12:39] VITALS: BP 101/45
== END 2020-06-07 13:41 | disposition home or self-care (01) ==
LOC: II 12:27 → 5TH 12:28 → II 13:41
PROVIDERS: ATTEND Obstetrics & Gynecology
DX: O21.1 Hyperemesis gravidarum with metabolic disturbance (principal)
CPT/HCPCS: 96360; 96361; J1642

== ENCOUNTER 2020-06-12 11:21 | Outpatient (CLI) | payer OTHER ==
[2020-06-12] MEDS ORDERED: DEXTROSE 5%-LACTATED RINGERS 1,000 ML IV PRN (11:31)
[2020-06-12 11:39] VITALS: BP 105/49
== END 2020-06-12 12:30 | disposition home or self-care (01) ==
LOC: II 11:21 → 5TH 11:23 → II 12:30
PROVIDERS: ATTEND Nurse Practitioner Primary Care
DX: O21.1 Hyperemesis gravidarum with metabolic disturbance (principal)
CPT/HCPCS: 96360; J1642

== ENCOUNTER 2020-06-13 08:34 | Outpatient (CLI) | payer OTHER ==
[2020-06-13 08:46] VITALS: BP 108/69
[2020-06-13] MEDS ORDERED: DEXTROSE 5%-LACTATED RINGERS 1,000 ML IV PRN (08:59)
== END 2020-06-13 09:39 | disposition home or self-care (01) ==
LOC: II 08:34 → 5TH 08:36 → II 09:39
PROVIDERS: ATTEND Nurse Practitioner Primary Care
DX: O21.1 Hyperemesis gravidarum with metabolic disturbance (principal)
CPT/HCPCS: 96360; J1642

== ENCOUNTER 2020-06-14 08:24 | Outpatient (CLI) | payer OTHER ==
[2020-06-14 08:31] VITALS: BP 111/56
[2020-06-14] MEDS ORDERED: DEXTROSE 5%-LACTATED RINGERS 1,000 ML IV PRN (08:40)
== END 2020-06-14 09:58 | disposition home or self-care (01) ==
LOC: II 08:24 → 5TH 08:29 → II 09:58
PROVIDERS: ATTEND Nurse Practitioner Primary Care
DX: O21.1 Hyperemesis gravidarum with metabolic disturbance (principal)
CPT/HCPCS: 96360; J1642

== ENCOUNTER 2020-06-26 12:18 | Outpatient (CLI) | payer OTHER ==
[2020-06-26 12:44] VITALS: BP 102/55
[2020-06-26] MEDS ORDERED: DEXTROSE 5%-LACTATED RINGERS 1,000 ML IV PRN (12:57)
[2020-06-26] MEDS ORDERED: DEXTROSE 5%-WATER 1000 ML 1,000 ML IV ONE (13:00)
== END 2020-06-26 14:15 | disposition home or self-care (01) ==
LOC: II 12:18 → 5TH 12:21 → II 14:15
PROVIDERS: ATTEND Nurse Practitioner Primary Care
DX: O21.1 Hyperemesis gravidarum with metabolic disturbance (principal)
CPT/HCPCS: 96360; J1642

== ENCOUNTER 2020-06-28 09:02 | Outpatient (CLI) | payer OTHER ==
[2020-06-28 09:12] VITALS: BP 105/56
== END 2020-06-28 10:03 | disposition home or self-care (01) ==
LOC: II 09:02 → 5TH 09:04 → II 10:03
PROVIDERS: ATTEND Nurse Practitioner Primary Care
DX: O21.1 Hyperemesis gravidarum with metabolic disturbance (principal)
CPT/HCPCS: 96360; J1642

== ENCOUNTER 2020-06-29 08:23 | Outpatient (CLI) | payer OTHER ==
[2020-06-29 09:30] VITALS: BP 106/66
== END 2020-06-29 10:00 | disposition home or self-care (01) ==
LOC: II 08:23 → 5TH 08:26 → II 10:00
PROVIDERS: ATTEND Nurse Practitioner Primary Care
DX: O21.1 Hyperemesis gravidarum with metabolic disturbance (principal)
CPT/HCPCS: 96360; J1642

== ENCOUNTER 2020-07-03 12:21 | Outpatient (CLI) | payer OTHER ==
[2020-07-03 12:50] VITALS: BP 96/53
== END 2020-07-03 13:30 | disposition home or self-care (01) ==
LOC: II 12:21 → 5TH 12:46 → II 13:30
PROVIDERS: ATTEND Nurse Practitioner Primary Care
DX: O21.1 Hyperemesis gravidarum with metabolic disturbance (principal)
CPT/HCPCS: 96360; J1642

== ENCOUNTER 2020-07-04 08:19 | Outpatient (CLI) | payer OTHER ==
[2020-07-04] MEDS ORDERED: DEXTROSE 5%-LACTATED RINGERS 1,000 ML IV PRN (08:34)
[2020-07-04 08:38] VITALS: BP 108/41
== END 2020-07-04 09:42 | disposition home or self-care (01) ==
LOC: II 08:19 → 5TH 08:22 → II 09:42
PROVIDERS: ATTEND Nurse Practitioner Primary Care
DX: O21.1 Hyperemesis gravidarum with metabolic disturbance (principal)
CPT/HCPCS: 96360; J1642

== ENCOUNTER 2020-07-06 09:12 | Outpatient (CLI) | payer OTHER ==
[2020-07-06 09:21] VITALS: BP 106/53
[2020-07-06] MEDS ORDERED: DEXTROSE 5%-LACTATED RINGERS 1,000 ML IV PRN (09:41)
== END 2020-07-06 10:30 | disposition home or self-care (01) ==
LOC: II 09:12 → 5TH 09:13 → II 10:30
PROVIDERS: ATTEND Nurse Practitioner Primary Care
DX: O21.1 Hyperemesis gravidarum with metabolic disturbance (principal)
CPT/HCPCS: 96360; J1642

== ENCOUNTER 2020-07-10 08:30 | Outpatient (CLI) | payer OTHER ==
[2020-07-10] MEDS ORDERED: DEXTROSE 5%-LACTATED RINGERS 1,000 ML IV PRN (08:35)
[2020-07-10 08:43] VITALS: BP 108/55
== END 2020-07-10 09:42 | disposition home or self-care (01) ==
LOC: II 08:30 → 5TH 08:30 → II 09:42
PROVIDERS: ATTEND Nurse Practitioner Primary Care
DX: O21.1 Hyperemesis gravidarum with metabolic disturbance (principal)
CPT/HCPCS: 96360; J1642

== ENCOUNTER 2020-07-11 11:06 | Outpatient (CLI) | payer OTHER ==
[2020-07-11 11:15] VITALS: BP 107/57
[2020-07-11] MEDS ORDERED: DEXTROSE 5%-LACTATED RINGERS 1,000 ML IV PRN (11:24)
== END 2020-07-11 12:30 | disposition home or self-care (01) ==
LOC: II 11:06 → 5TH 11:07 → II 12:30
PROVIDERS: ATTEND Nurse Practitioner Primary Care
DX: O21.1 Hyperemesis gravidarum with metabolic disturbance (principal)
CPT/HCPCS: 96360; J1642

== ENCOUNTER 2020-07-13 09:29 | Outpatient (CLI) | payer OTHER ==
[2020-07-13] MEDS ORDERED: DEXTROSE 5%-LACTATED RINGERS 1,000 ML IV PRN (09:46)
[2020-07-13 10:00] VITALS: BP 102/52
== END 2020-07-13 11:23 | disposition home or self-care (01) ==
LOC: II 09:29 → 5TH 09:31 → II 11:23
PROVIDERS: ATTEND Nurse Practitioner Primary Care
DX: O21.1 Hyperemesis gravidarum with metabolic disturbance (principal)
CPT/HCPCS: 96360; J1642; 96361

== ENCOUNTER 2020-07-17 09:35 | Outpatient (CLI) | payer OTHER ==
[2020-07-17 09:47] VITALS: BP 106/58
[2020-07-17] MEDS ORDERED: DEXTROSE 5%-LACTATED RINGERS 1,000 ML IV PRN (09:49)
== END 2020-07-17 12:07 | disposition home or self-care (01) ==
LOC: II 09:35 → 5TH 09:36 → II 12:07
PROVIDERS: ATTEND Nurse Practitioner Primary Care
DX: O21.1 Hyperemesis gravidarum with metabolic disturbance (principal)
CPT/HCPCS: 96360; J1642

== ENCOUNTER 2020-07-19 10:08 | Outpatient (CLI) | payer OTHER ==
[2020-07-19 10:15] VITALS: BP 110/54
[2020-07-19] MEDS ORDERED: DEXTROSE 5%-LACTATED RINGERS 1,000 ML IV PRN (10:21)
== END 2020-07-19 13:30 | disposition home or self-care (01) ==
LOC: II 10:08 → 5TH 10:16 → II 13:30
PROVIDERS: ATTEND Nurse Practitioner Primary Care
DX: O21.1 Hyperemesis gravidarum with metabolic disturbance (principal)
CPT/HCPCS: 96360; J1642

== ENCOUNTER 2020-07-20 08:30 | Outpatient (CLI) | payer OTHER ==
[2020-07-20 08:42] VITALS: BP 105/57
[2020-07-20] MEDS ORDERED: DEXTROSE 5%-LACTATED RINGERS 1,000 ML IV PRN (08:49)
== END 2020-07-20 10:08 | disposition home or self-care (01) ==
LOC: II 08:30 → 5TH 08:33 → II 10:08
PROVIDERS: ATTEND Nurse Practitioner Primary Care
DX: O21.1 Hyperemesis gravidarum with metabolic disturbance (principal)
CPT/HCPCS: 96360; J1642

== ENCOUNTER 2020-08-02 13:26 | Outpatient (CLI) | payer OTHER ==
[2020-08-02 13:45] VITALS: BP 98/48
[2020-08-02] MEDS ORDERED: DEXTROSE 5%-LACTATED RINGERS 1,000 ML IV ONE (14:00)
== END 2020-08-02 14:55 | disposition home or self-care (01) ==
LOC: II 13:26 → 5TH 13:27 → II 14:55
PROVIDERS: ATTEND Nurse Practitioner Primary Care
DX: O21.1 Hyperemesis gravidarum with metabolic disturbance (principal)
CPT/HCPCS: 96360; J1642

== ENCOUNTER 2020-08-03 08:13 | Outpatient (CLI) | payer OTHER ==
[2020-08-03 08:27] VITALS: BP 110/59
[2020-08-03] MEDS ORDERED: DEXTROSE 5%-LACTATED RINGERS 1,000 ML IV PRN (08:28)
== END 2020-08-03 09:30 | disposition home or self-care (01) ==
LOC: II 08:13 → 5TH 08:23 → II 09:30
PROVIDERS: ATTEND Nurse Practitioner Primary Care
DX: O21.1 Hyperemesis gravidarum with metabolic disturbance (principal)
CPT/HCPCS: 96360; J1642

== ENCOUNTER 2020-08-07 09:02 | Outpatient (CLI) | payer OTHER ==
[2020-08-07] MEDS ORDERED: DEXTROSE 5%-LACTATED RINGERS 1,000 ML IV PRN (09:22)
[2020-08-07 10:00] VITALS: BP 107/51
== END 2020-08-07 11:00 | disposition home or self-care (01) ==
LOC: II 09:02 → 5TH 09:05 → II 11:00
PROVIDERS: ATTEND Nurse Practitioner Primary Care
DX: O21.1 Hyperemesis gravidarum with metabolic disturbance (principal)
CPT/HCPCS: 96360; J1642

== ENCOUNTER 2020-08-08 11:25 | Outpatient (CLI) | payer OTHER ==
[2020-08-08] MEDS ORDERED: DEXTROSE 5%-LACTATED RINGERS 1,000 ML IV PRN (12:00)
[2020-08-08 12:16] VITALS: BP 95/57
== END 2020-08-08 13:00 | disposition home or self-care (01) ==
LOC: II 11:25 → 5TH 12:08 → II 13:00
PROVIDERS: ATTEND Nurse Practitioner Primary Care
DX: O21.1 Hyperemesis gravidarum with metabolic disturbance (principal)
CPT/HCPCS: 96360; J1642